=== PATIENT | female | born 1935 | race Two or more races ===

== ENCOUNTER 2017-09-10 03:30 | Inpatient (IN) | payer MEDICARE, OTHER ==
[~2017-09-10] VITALS: Ht 170.2 cm; Wt 94.8 kg
[~2017-09-10 03:30] MED LIST: AMLO5TAB2 PO; ATOR10TA PO; CLOP75TA15 PO; FURO20TA4 PO; GEMF600T3 PO; GLIM2TAB PO; INSU100V27 SQ; INSU100V7 SQ; LEVO75TA7 PO; LISI10TA5 PO; METF500T7 PO; METO50TA16 PO
--- NOTE | 2017-09-10 03:35 | NUR ---
82 YO FEMALE BB RA FROM HOME. PATIENT IS ALERT AND ORIENTED X 3, C/O SOB. PATIENT SPO2 IS 85 % ON ROOM AIR, PLACED PATIENT ON 4 LPM NC. PATIENT PLACED ON BICYCLE REPAIRER, SKIN WARM AND DRY, RESP EVEN AND UNLABORED. AWAITING ORDERS FROM PROVIDER, WILL CONTINUE TO MONITOR
[2017-09-10] MEDS ORDERED: ONDANSETRON HCL/PF 4 MG/2 ML VIAL ONE (03:45)
[2017-09-10] MEDS ORDERED: IV NS 0.9% 1,000 ML BAG IV ONE (04:00)
[2017-09-10] MEDS ORDERED: ONDANSETRON HCL/PF 4 MG/2 ML VIAL IVP ONE (04:00)
--- NOTE | 2017-09-10 04:02 | NUR ---
22G RIGHT HAND IV STARTED, MEDICATED PT ORDERED
[2017-09-10] MEDS ORDERED: DABI150C PO (04:09)
[2017-09-10] MEDS ORDERED: OMEG1CAP55 PO (04:09)
[2017-09-10] MEDS ORDERED: ZOLP10TA2 PO (04:09)
[2017-09-10] MEDS ORDERED: MULT1TAB73 PO (04:09)
[2017-09-10] MEDS ORDERED: EMPA25TA PO (04:09)
[2017-09-10] MEDS ORDERED: PANT40TA2 PO (04:09)
[2017-09-10] MEDS ORDERED: ASPI-1169 PO (04:09)
[2017-09-10] MEDS ORDERED: PIRF267C PO (04:09)
--- NOTE | 2017-09-10 04:25 | NUR ---
LINOLEUM LAYER HELPER AT [facility] SIDE FOR BLOOD DRAW
[2017-09-10 04:37] LABS: BASOPHILS % (AUTO) 0.2 % (0.0-2.0); EOSINOPHILS # (AUTO) 0.1 /CMM (0.0-0.7); EOSINOPHILS % (AUTO) 1.3 % (0.0-6.0); HEMATOCRIT 36 % (33-45); HEMOGLOBIN 11.9 g/dL (11.5-14.8); LYMPHOCYTES # (AUTO) 1.5 /CMM (0.8-4.8); LYMPHOCYTES % (AUTO) 14.6 % (20.0-44.0); MEAN CORPUSCULAR HEMOGLOBIN 28 PG (26.0-33.0); MEAN CORPUSCULAR HGB CONC 33 g/dl (31.0-36.0); MEAN CORPUSCULAR VOLUME 87 fL (82-100); MONOCYTES # (AUTO) 0.4 /CMM (0.1-1.30); MONOCYTES % (AUTO) 3.9 % (2.0-12.0); NEUTROPHILS # (AUTO) 8.4 /CMM (1.8-8.9); PLATELET COUNT (AUTO) 277 /CMM (150-450); RDW COEFFICIENT OF VARIATION 16.3 (11.5-15.0); RED BLOOD CELL COUNT(AUTO) 4.18 MIL/uL (4.0-5.2); WHITE BLOOD COUNT (AUTO) 10.6 K/uL (4.3-11.0)
[2017-09-10 04:56] LABS: ALANINE AMINOTRANSFERASE 22 U/L (12-78); ALBUMIN 3.2 g/dL (3.4-5.0); ALKALINE PHOSPHATASE 88 U/L (46-116); ASPARTATE AMINOTRANSFERASE 20 U/L (15-37); BILIRUBIN,DIRECT 0.1 mg/dL (0.0-0.2); BILIRUBIN,TOTAL 0.2 mg/dL (0.2-1.0); CALCIUM, SERUM 9.2 mg/dL (8.5-10.1); CARBON DIOXIDE 29 mmol/L (21-32); CHLORIDE 102 mmol/L (98-107); CREATININE 0.8 mg/dL (0.6-1.3); GLUCOSE 205 mg/dL (74-106); POTASSIUM 4.2 mmol/L (3.5-5.1); SODIUM SERUM 139 mmol/L (136-145); TOTAL PROTEIN, SERUM 7.9 g/dL (6.4-8.2); UREA NITROGEN, BLOOD 25 mg/dL (7-18)
[2017-09-10 04:58] LABS: TROPONIN I 0.053 ng/mL (0.00-0.056)
[2017-09-10] MEDS ORDERED: ALBUTEROL FS 2.5 MG/3 ML VIAL.NEB NEB ONE (05:30)
[2017-09-10] MEDS ORDERED: ALBUTEROL FS 2.5 MG/3 ML VIAL.NEB ONE (05:38)
[2017-09-10 05:44] LABS: APPEARANCE,URINE CLEAR (CLEAR); BILIRUBIN,URINE NEGATIVE (NEGATIVE); BLOOD, URINE NEGATIVE Ery/uL (NEGATIVE); COLOR,URINE YELLOW (YELLOW); KETONES,URINE NEGATIVE (NEGATIVE); LEUKOCYTE ESTERASE ,URINE NEGATIVE (NEGATIVE); NITRITE, URINE NEGATIVE (NEGATIVE); PROTEIN,URINE 3+ mg/dl (NEGATIVE); UGLUCOSE 2+ mg/dL (NEGATIVE); UROBILINOGEN,URINE 0.2 EU/dL (0.2)
[2017-09-10 06:09] LABS: BACTERIA,URINE Rare /HPF (None Seen); SQUAMOUS EPITHELIAL CELL,UR Few /HPF (None Seen)
[2017-09-10] MEDS ORDERED: methylPREDNISolone SOD SUCC 125 MG/2ML VIAL IV ONE (06:30)
[2017-09-10] MEDS ORDERED: MECLIZINE HCL 12.5 MG TABLET PO ONE (06:30)
--- NOTE | 2017-09-10 06:57 | NUR ---
REPORT WAS GIVEN TO ISRAEL BELTRE FOR [facility]
[2017-09-10] MEDS ORDERED: methylPREDNISolone SOD SUCC 125 MG/2ML VIAL ONE (07:01)
[2017-09-10] MEDS ORDERED: MECLIZINE HCL 25 MG TABLET ONE (07:01)
--- NOTE | 2017-09-10 08:00 | NUR ---
BRANCH ACCOUNT MANAGER NOTES RECEIVED PT FROM E.R. STAFF, PT IS AWAKE, ALERT AND ORIENTED, NO COMPLAINT OF PAIN, UNABLE TO AMBULATE, FEELING DIZZY, ASSISTED TO BED, MADE COMFORTABLE, RESPIRATIONS NORMAL AND NOT LABORED, ON O2 ORDERED, ROOM SET UP ORIENTATION PROVIDED TO PT, VERBALIZED UNDERSTANDING, ADMITTING ORDERS NOTED AND CARRIED OUT.
[2017-09-10] MEDS ORDERED: IPRATROPIUM NEB FS 0.5 MG/2.5 ML AMPUL.NEB IH PRN (08:30)
[2017-09-10] MEDS ORDERED: ALBUTEROL FS 2.5 MG/0.5 ML VIAL.NEB NEB PRN (08:30)
[2017-09-10] MEDS ORDERED: ACETAMINOPHEN 650 MG/20.3 ML UDC PO PRN (08:30)
[2017-09-10] MEDS: predniSONE 20 MG TABLET PO SCH ×2 (09:06→16:51)
[2017-09-10] MEDS: MECLIZINE HCL 12.5 MG TABLET PO SCH ×3 (09:06→16:49)
[2017-09-10] MEDS: PANTOPRAZOLE 40 MG TABLET.DR PO SCH (09:06)
[2017-09-10] MEDS ORDERED: DEXTROSE 50%-WATER 50 ML DISP.SYRIN IV PRN (09:30)
[2017-09-10] MEDS ORDERED: ONDANSETRON HCL/PF 4 MG/2 ML VIAL IVP PRN (09:30)
--- NOTE | 2017-09-10 10:32 | NUR ---
RN MS NOTES RECEIVED ORDER FROMDR. FUCHS TO CONTINUE ALL HOME MEDICATIONS.
[2017-09-10] MEDS ORDERED: PANTOPRAZOLE 40 MG TABLET.DR PO SCH (11:04)
[2017-09-10] MEDS: MULTIVITAMINS,THERAGRAN 1 UDTAB TABLET PO SCH (11:05)
[2017-09-10 12:00] VITALS: BP 170/74
[2017-09-10] MEDS ORDERED: DABIGATRAN ETEXILATE MESYLATE 150 MG CAPSULE PO SCH ×2 (12:00→13:14)
[2017-09-10] MEDS: INSULIN REGULAR, HUMAN 100 UNIT/ML 3 ML VIAL SQ PRN ×2 (12:30→17:14)
[2017-09-10] MEDS: FUROSEMIDE 20 MG TABLET PO SCH (12:31)
[2017-09-10] MEDS: AMLODIPINE BESYLATE 5 MG TABLET PO SCH (12:31)
[2017-09-10] MEDS: BLOOD SUGAR DIAGNOSTIC 1 EACH STRIP VI SCH ×3 (12:32→22:11)
[2017-09-10] MEDS: LISINOPRIL (10MG) 10 MG TABLET PO SCH (12:32)
[2017-09-10] MEDS: ASPIRIN 81 MG TAB.CHEW PO SCH (12:32)
[2017-09-10] MEDS ORDERED: prednisoLONE ACET 1% OPHT DROP 5 ML BOTTLE LEFTEYE SCH (13:00)
[2017-09-10] MEDS: ESBRIET 267 MG PO SCH ×2 (13:12→16:51)
[2017-09-10] MEDS: IPRATROPIUM NEB FS 0.5 MG/2.5 ML AMPUL.NEB IH SCH ×2 (13:30→19:50)
[2017-09-10] MEDS: ALBUTEROL FS 2.5 MG/0.5 ML VIAL.NEB NEB SCH ×2 (13:30→19:50)
[2017-09-10] MEDS: JARDIANCE PO SCH (14:00)
[2017-09-10] MEDS ORDERED: PRED5DRO16 LEFTEYE (14:13)
[2017-09-10 16:00] VITALS: BP 180/76
[2017-09-10] MEDS: IV NS 0.9% 1,000 ML IV PRN (16:48)
[2017-09-10] MEDS: METOPROLOL TARTRATE 25 MG TABLET PO SCH (16:50)
[2017-09-10] MEDS: METFORMIN XR 500 MG TAB.SR.24H PO SCH (16:50)
[2017-09-10] MEDS: LOVAZA PO SCH (16:50)
[2017-09-10] MEDS: DABIGATRAN ETEXILATE MESYLATE 150 MG CAPSULE PO SCH (16:51)
[2017-09-10 17:30] VITALS: BP 150/65
--- NOTE | 2017-09-10 18:30 | NUR ---
FINISH FILER NOTES PT IN BED, AWAKE, ALERT AND ORIENTED, NO COMPLAINT OF PAIN, NO SOB, NO COMPLAINT OF N/V, HOME MEDS CONTINUED PER DR. FUCHS'S ORDERS, NOTED WITH ELEVATED BP, BP MEDS GIVEN ORDERED, ENDORSED TO PM NURSE TO CONTINUE TO MONITOR, TOLERATING CURRENT DIET WELL, INSULIN GIVEN PER SLIDING SCALE ORDERED, ALL NEEDS ATTENDED.
[2017-09-10] MEDS: PREDNISOLONE ACETATE 1% LEFTEYE SCH ×2 (19:10→22:02)
--- NOTE | 2017-09-10 19:30 | NUR ---
TELE/RN RECEIVE PATIENT AWAKE, ALERT, ORIENTED, COMFORTABLE, NO C/O PAIN, NO DIZZINESS AT THIS TIME, NO DISTRESS NOTED, FALL PRECAUTION, ENCOURAGED TO USE CALL LIGHT L FOR ANY HELP TO PREVENT FALL, VERBALIZED UNDERSTANDING, CALL LIGHT IN REACH. WILL MONITOR.
[2017-09-10 20:00] VITALS: BP 133/51
--- NOTE | 2017-09-10 20:42 | NUR ---
Met with patient, she is alert and pleasant. She lives locally with her daughter Priscila in a 1 story home. Prior to admit- she was ambulating with a walker inside house and cane outside household. She was semi-independent with adl's. Has adequate DME: Home O2, walker, cane, wheelchair, commode and grab bars. She had previous homehealth and outpt PT but cannot recall the name and contact info of the company. Patient want to return home, her daughter will provide ride once discharge. Addendum: 09/10/17 at 2042 by SUSANA WYNN RN Amended: Links added.
[2017-09-10] MEDS ORDERED: ESBRIET PO ONE (21:00)
[2017-09-10] MEDS: INSULIN GLARGINE, 100 UNIT/ML CARTRIDGE SQ SCH (21:57)
[2017-09-10] MEDS: *INSULIN REGULAR(HUMULIN R)HUM 100 UNIT/ML VIAL SQ PRN (21:58)
[2017-09-10] MEDS: ZOLPIDEM TARTRATE 5 MG TABLET PO PRN (23:09)
[2017-09-11] VITALS: BP 145/72
--- NOTE | 2017-09-11 01:13 | NUR ---
TELE/RN PATIENT IS SLEEPING AT THIS TIME, AROUSABLE, APPEAR COMFORTABLE, NO SIGNS OF DISTRESS NOTED, CALL LIGHT IN REACH. WILL CONTINUE TO MONITOR.
--- NOTE | 2017-09-11 03:59 | NUR ---
TELE/RN IV NOT PATENT ANYMORE, REMOVED, AND INSERTED NEW IV AT LEFT HAND.
[2017-09-11 04:00] VITALS: BP 158/61
[2017-09-11] MEDS: INSULIN REGULAR, HUMAN 100 UNIT/ML 3 ML VIAL SQ PRN ×3 (06:42→17:29)
--- NOTE | 2017-09-11 06:49 | NUR ---
TELE/RN PATIENT IS AWAKE, COMFORTABLE, NO DISTRESS NOTED, ALL NEEDS ATTENDED AT THIS TIME. WILL CONTINUE TO MONITOR.
[2017-09-11 07:02] LABS: CARBON DIOXIDE 29 mmol/L (21-32); CHLORIDE 102 mmol/L (98-107); CREATININE 0.8 mg/dL (0.6-1.3); GLUCOSE 294 mg/dL (74-106); POTASSIUM 4.5 mmol/L (3.5-5.1); SODIUM SERUM 141 mmol/L (136-145); UREA NITROGEN, BLOOD 26 mg/dL (7-18)
[2017-09-11 07:03] LABS: HEMATOCRIT 34 % (33-45); HEMOGLOBIN 11.2 g/dL (11.5-14.8); LYMPHOCYTES # (AUTO) 1.3 /CMM (0.8-4.8); LYMPHOCYTES % (AUTO) 11.1 % (20.0-44.0); MEAN CORPUSCULAR HEMOGLOBIN 29 PG (26.0-33.0); MEAN CORPUSCULAR HGB CONC 33 g/dl (31.0-36.0); MEAN CORPUSCULAR VOLUME 86 fL (82-100); MONOCYTES # (AUTO) 0.5 /CMM (0.1-1.30); MONOCYTES % (AUTO) 4.4 % (2.0-12.0); NEUTROPHILS % (AUTO) 84.5 % (43.0-81.0); PLATELET COUNT (AUTO) 269 /CMM (150-450); RDW COEFFICIENT OF VARIATION 15.8 (11.5-15.0); RED BLOOD CELL COUNT(AUTO) 3.93 MIL/uL (4.0-5.2); WHITE BLOOD COUNT (AUTO) 11.9 K/uL (4.3-11.0)
[2017-09-11] MEDS: BLOOD SUGAR DIAGNOSTIC 1 EACH STRIP VI SCH ×4 (07:30→21:46)
[2017-09-11] MEDS: IPRATROPIUM NEB FS 0.5 MG/2.5 ML AMPUL.NEB IH SCH ×3 (07:47→20:11)
[2017-09-11] MEDS: ALBUTEROL FS 2.5 MG/0.5 ML VIAL.NEB NEB SCH ×3 (07:47→20:11)
[2017-09-11 08:00] VITALS: BP 153/72
--- NOTE | 2017-09-11 08:00 | NUR ---
MS RN RECEIVED ON BED,AWAKE,ALERT,ORIENTED X3,NOT IN ANY FORM OF DISTRESS,RESPIRATIONS EVEN AND UNLABORED,NO SOB NOTED, LUNGS ARE DIMINISH,ABDOMEN SOFT,POSITIVE BOWEL SOUNDS, DENIES PAIN AT THIS TIME.WILL MONITOR PATIENT'S CONDITION.
--- NOTE | 2017-09-11 09:00 | NUR ---
MS BELTRE BREAKFAST SERVED,DUE MEDS GIVEN,TOLERATED WELL.
[2017-09-11] MEDS: ATORVASTATIN 40 MG TABLET PO SCH (09:21)
[2017-09-11] MEDS: METFORMIN XR 500 MG TAB.SR.24H PO SCH ×2 (09:21→17:20)
[2017-09-11] MEDS: MULTIVITAMINS,THERAGRAN 1 UDTAB TABLET PO SCH (09:21)
[2017-09-11] MEDS: predniSONE 20 MG TABLET PO SCH ×2 (09:21→17:20)
[2017-09-11] MEDS: ASPIRIN 81 MG TAB.CHEW PO SCH (09:22)
[2017-09-11] MEDS: LOVAZA PO SCH (09:22)
[2017-09-11] MEDS: MECLIZINE HCL 12.5 MG TABLET PO SCH ×3 (09:22→21:46)
[2017-09-11] MEDS: FUROSEMIDE 20 MG TABLET PO SCH (09:22)
[2017-09-11] MEDS: PREDNISOLONE ACETATE 1% LEFTEYE SCH ×4 (09:22→21:43)
[2017-09-11] MEDS: ESBRIET 267 MG PO SCH ×3 (09:22→17:20)
[2017-09-11] MEDS: JARDIANCE PO SCH (09:23)
[2017-09-11] MEDS: DABIGATRAN ETEXILATE MESYLATE 150 MG CAPSULE PO SCH ×2 (09:23→17:20)
[2017-09-11] MEDS: METOPROLOL TARTRATE 25 MG TABLET PO SCH ×2 (09:24→17:25)
[2017-09-11] MEDS: AMLODIPINE BESYLATE 5 MG TABLET PO SCH (09:25)
[2017-09-11] MEDS: LISINOPRIL (10MG) 10 MG TABLET PO SCH (09:25)
[2017-09-11] MEDS: PANTOPRAZOLE 40 MG TABLET.DR PO SCH (09:27)
[2017-09-11] MEDS: LEVOTHYROXINE SODIUM 75 MCG TABLET PO SCH (09:27)
--- NOTE | 2017-09-11 09:30 | NUR ---
MS RN WAS SEEN BY DR. FUCHS , WAS NOTIFIED OF THE LACTIC ACID THAT IS ELEVATED, NO ORDER AT THIS TIME.
[2017-09-11] MEDS: INSULIN GLARGINE, 100 UNIT/ML CARTRIDGE SQ SCH ×2 (10:12→21:44)
--- NOTE | 2017-09-11 12:00 | NUR ---
MS RN PAGE DR. FUCHS, MADE AWARE THAT LACTIC ACID WENT UP TO 3.9 AND PATIENT IS COMPLAINING OF BURNING URINATION.AWAITING FOR HIM TO ORDER.
[2017-09-11] MEDS ORDERED: ESBRIET 267 MG PO SCH (13:00)
--- NOTE | 2017-09-11 14:00 | NUR ---
MS PATT FUCHS CALLED BACK W/ ORDER TO SEND URINE FOR UA AND SENSITIVITY AND BLOOD CULTURE.CARRIED OUT.
[2017-09-11 16:00] VITALS: BP 146/62
[2017-09-11] MEDS ORDERED: PIPERACILLIN /TAZOBACTAM 3.375 G in IV D5W 100 ML IV SCH (17:30)
[2017-09-11] MEDS: PIPERACILLIN /TAZOBACTAM 3.375 G in IV D5W 50 ML IV SCH (18:48)
[2017-09-11] MEDS: IV NS 0.9% 1,000 ML IV PRN (18:48)
--- NOTE | 2017-09-11 19:30 | NUR ---
MS/RN RECEIVE PATIENT AWAKE, ALERT, ORIENTED, COMFORTABLE, NO C/O PAIN, NO DISTRESS NOTED, CALL LIGHT IN REACH. WILL MONITOR.
[2017-09-11 20:00] VITALS: BP 147/67
[2017-09-11] MEDS: *INSULIN REGULAR(HUMULIN R)HUM 100 UNIT/ML VIAL SQ PRN (21:45)
[2017-09-12] MEDS: PIPERACILLIN /TAZOBACTAM 3.375 G in IV D5W 50 ML IV SCH ×5 (00:25→23:38)
[2017-09-12] MEDS: ZOLPIDEM TARTRATE 5 MG TABLET PO PRN ×2 (00:32→21:11)
[2017-09-12] MEDS: MECLIZINE HCL 12.5 MG TABLET PO SCH ×3 (05:19→21:11)
[2017-09-12 06:24] LABS: CALCIUM, SERUM 9.6 mg/dL (8.5-10.1); CARBON DIOXIDE 32 mmol/L (21-32); CHLORIDE 103 mmol/L (98-107); CREATININE 0.8 mg/dL (0.6-1.3); GLUCOSE 150 mg/dL (74-106); MAGNESIUM 2.2 mg/dL (1.8-2.4); POTASSIUM 4.1 mmol/L (3.5-5.1); SODIUM SERUM 142 mmol/L (136-145); UREA NITROGEN, BLOOD 34 mg/dL (7-18)
[2017-09-12 06:34] LABS: BASOPHILS % (AUTO) 0.3 % (0.0-2.0); EOSINOPHILS % (AUTO) 0.1 % (0.0-6.0); HEMATOCRIT 34 % (33-45); HEMOGLOBIN 11.3 g/dL (11.5-14.8); LYMPHOCYTES # (AUTO) 1.5 /CMM (0.8-4.8); LYMPHOCYTES % (AUTO) 12.3 % (20.0-44.0); MEAN CORPUSCULAR HEMOGLOBIN 29 PG (26.0-33.0); MEAN CORPUSCULAR HGB CONC 34 g/dl (31.0-36.0); MEAN CORPUSCULAR VOLUME 86 fL (82-100); MONOCYTES # (AUTO) 0.4 /CMM (0.1-1.30); NEUTROPHILS # (AUTO) 10.4 /CMM (1.8-8.9); NEUTROPHILS % (AUTO) 84.3 % (43.0-81.0); PLATELET COUNT (AUTO) 294 /CMM (150-450); RDW COEFFICIENT OF VARIATION 16.6 (11.5-15.0); RED BLOOD CELL COUNT(AUTO) 3.92 MIL/uL (4.0-5.2); WHITE BLOOD COUNT (AUTO) 12.3 K/uL (4.3-11.0)
[2017-09-12] MEDS: INSULIN REGULAR, HUMAN 100 UNIT/ML 3 ML VIAL SQ PRN ×3 (06:54→18:08)
[2017-09-12] MEDS: BLOOD SUGAR DIAGNOSTIC 1 EACH STRIP VI SCH ×4 (06:57→21:15)
--- NOTE | 2017-09-12 07:00 | NUR ---
MS/RN PATIENT AWAKE, COMFORTABLE, NO CHANGE IN CONDITION. ALL NEEDS ATTENDED AT THIS TIME. WILL CONTINUE TO MONITOR.
[2017-09-12] MEDS: ALBUTEROL FS 2.5 MG/0.5 ML VIAL.NEB NEB SCH ×3 (07:17→20:23)
[2017-09-12] MEDS: IPRATROPIUM NEB FS 0.5 MG/2.5 ML AMPUL.NEB IH SCH ×3 (07:17→20:23)
[2017-09-12 08:00] VITALS: BP 132/76
--- NOTE | 2017-09-12 08:00 | NUR ---
ms rn received on bed, alert,oriented x4,not in any form of distress, respirations even and unlabored,no sob noted, lungs are clear,abdomen soft,positive bowel sounds,denies pain at this time, will monitor patients condition.
--- NOTE | 2017-09-12 09:00 | NUR ---
ms cross breakfast served,due meds given,tolerated well.
[2017-09-12] MEDS: ATORVASTATIN 40 MG TABLET PO SCH (09:18)
[2017-09-12] MEDS: ASPIRIN 81 MG TAB.CHEW PO SCH (09:18)
[2017-09-12] MEDS: ESBRIET 267 MG PO SCH ×3 (09:18→17:58)
[2017-09-12] MEDS: predniSONE 20 MG TABLET PO SCH ×2 (09:19→17:57)
[2017-09-12] MEDS: PANTOPRAZOLE 40 MG TABLET.DR PO SCH (09:19)
[2017-09-12] MEDS: LEVOTHYROXINE SODIUM 75 MCG TABLET PO SCH (09:19)
[2017-09-12] MEDS: JARDIANCE PO SCH (09:20)
[2017-09-12] MEDS: METFORMIN XR 500 MG TAB.SR.24H PO SCH ×2 (09:20→17:57)
[2017-09-12] MEDS: FUROSEMIDE 20 MG TABLET PO SCH (09:20)
[2017-09-12] MEDS: LOVAZA PO SCH (09:21)
[2017-09-12] MEDS: AMLODIPINE BESYLATE 5 MG TABLET PO SCH (09:22)
[2017-09-12] MEDS: METOPROLOL TARTRATE 25 MG TABLET PO SCH ×2 (09:22→17:00)
[2017-09-12] MEDS: LISINOPRIL (10MG) 10 MG TABLET PO SCH (09:23)
[2017-09-12] MEDS: MULTIVITAMINS,THERAGRAN 1 UDTAB TABLET PO SCH (09:27)
[2017-09-12] MEDS: PREDNISOLONE ACETATE 1% LEFTEYE SCH ×4 (09:29→21:13)
[2017-09-12] MEDS: INSULIN GLARGINE, 100 UNIT/ML CARTRIDGE SQ SCH ×2 (09:42→21:15)
--- NOTE | 2017-09-12 10:00 | NUR ---
MS RN WAS SEEN BY DR. FUCHS W/ ORDERS MADE AND CARRIED OUT.
[2017-09-12] MEDS: DABIGATRAN ETEXILATE MESYLATE 150 MG CAPSULE PO SCH ×2 (12:45→17:57)
--- NOTE | 2017-09-12 15:30 | NUR ---
MS RN ON BED,NO DISTRESS NOTED.
[2017-09-12 16:00] VITALS: BP 111/51
--- NOTE | 2017-09-12 18:00 | NUR ---
MS BELTRE BS - 292 - 9 UNITS OF REGULAR INSULIN GIVEN SQ.
--- NOTE | 2017-09-12 19:11 | NUR ---
MS RN ON BED, NO DISTRESS, WILL ENDORSE TO HUMAN RESOURCE ASSISTANT FOR CONTINUITY OF CARE.
--- NOTE | 2017-09-12 19:30 | NUR ---
RN NOTES RECEIVED PATIENT IN BED AWAKE, AO X 3, ABLE TO MAKE NEEDS KNOWN. NO ACUTE DISTRESS NOTED. DENIES ANY PAIN AT THIS TIME. IV SITE PATENT, INTACT; FLUSHED. NO SYMPTOMS OF HYPER/HYPOGLYCEMIA. SAFETY REMINDERS GIVEN. ON LOW BED WITH BILATERAL UPPER SIDE RAILS UP. CALL RHODES WITHIN EASY REACH. WILL CONTINUE TO MONITOR.
[2017-09-12 20:00] VITALS: BP 135/63
[2017-09-12] MEDS ORDERED: MAGNESIUM HYDROXIDE 30 ML UDC PO PRN (21:00)
[2017-09-12] MEDS: *INSULIN REGULAR(HUMULIN R)HUM 100 UNIT/ML VIAL SQ PRN (21:32)
[2017-09-13] MEDS: PIPERACILLIN /TAZOBACTAM 3.375 G in IV D5W 50 ML IV SCH ×4 (05:38→23:22)
[2017-09-13] MEDS: MECLIZINE HCL 12.5 MG TABLET PO SCH ×3 (05:38→21:06)
--- NOTE | 2017-09-13 06:25 | NUR ---
RN NOTES PATIENT ASLEEP, EASILY AROUSABLE. RESPIRATIONS EVEN. NO SIGNS OF PAIN NOTED. NO SYMPTOMS OF HYPER/HYPOGLYCEMIA. NEEDS ATTENDED. DUE MEDS GIVEN WITH NO ASE NOTED. KEPT CLEAN, DRY AND COMFORTABLE. SAFETY PRECAUTIONS AND COMFORT MEASURES IN PLACE. WILL GIVE REPORT TO DAY SHIFT FOR CONTINUITY OF CARE.
[2017-09-13] MEDS: INSULIN REGULAR, HUMAN 100 UNIT/ML 3 ML VIAL SQ PRN ×3 (06:32→17:29)
[2017-09-13] MEDS: LEVOTHYROXINE SODIUM 75 MCG TABLET PO SCH (06:34)
[2017-09-13] MEDS: PANTOPRAZOLE 40 MG TABLET.DR PO SCH (06:34)
[2017-09-13] MEDS: BLOOD SUGAR DIAGNOSTIC 1 EACH STRIP VI SCH ×4 (06:35→21:07)
[2017-09-13 07:09] LABS: BASOPHILS % (AUTO) 0.3 % (0.0-2.0); EOSINOPHILS # (AUTO) 0.1 /CMM (0.0-0.7); EOSINOPHILS % (AUTO) 0.5 % (0.0-6.0); HEMATOCRIT 38 % (33-45); HEMOGLOBIN 12.6 g/dL (11.5-14.8); LYMPHOCYTES # (AUTO) 1.9 /CMM (0.8-4.8); LYMPHOCYTES % (AUTO) 16.3 % (20.0-44.0); MEAN CORPUSCULAR HEMOGLOBIN 29 PG (26.0-33.0); MEAN CORPUSCULAR HGB CONC 33 g/dl (31.0-36.0); MEAN CORPUSCULAR VOLUME 87 fL (82-100); MONOCYTES # (AUTO) 0.5 /CMM (0.1-1.30); MONOCYTES % (AUTO) 4.4 % (2.0-12.0); NEUTROPHILS # (AUTO) 8.9 /CMM (1.8-8.9); NEUTROPHILS % (AUTO) 78.5 % (43.0-81.0); PLATELET COUNT (AUTO) 308 /CMM (150-450); RDW COEFFICIENT OF VARIATION 16.1 (11.5-15.0); RED BLOOD CELL COUNT(AUTO) 4.39 MIL/uL (4.0-5.2); WHITE BLOOD COUNT (AUTO) 11.4 K/uL (4.3-11.0)
[2017-09-13 07:19] LABS: CALCIUM, SERUM 9.1 mg/dL (8.5-10.1); CARBON DIOXIDE 33 mmol/L (21-32); CHLORIDE 104 mmol/L (98-107); CREATININE 0.9 mg/dL (0.6-1.3); GLUCOSE 160 mg/dL (74-106); SODIUM SERUM 145 mmol/L (136-145); UREA NITROGEN, BLOOD 38 mg/dL (7-18)
[2017-09-13] MEDS: ALBUTEROL FS 2.5 MG/0.5 ML VIAL.NEB NEB SCH ×3 (07:26→20:43)
[2017-09-13] MEDS: IPRATROPIUM NEB FS 0.5 MG/2.5 ML AMPUL.NEB IH SCH ×3 (07:26→20:43)
[2017-09-13 08:00] VITALS: BP 137/67
--- NOTE | 2017-09-13 08:00 | NUR ---
MS RN NOTES PATIENT IN BED RESTING NO SOB OR ACUTE DISTRESS NOTED. PERIPHERAL IV INTACT PATENT. PATIENT ALERT, ORIENTED X4. BED IN LOW LOCKED POSITION. CALL LIGHT WITHIN REACH. WILL CONTINUE TO MONITOR.
[2017-09-13] MEDS: FUROSEMIDE 20 MG TABLET PO SCH (08:25)
[2017-09-13] MEDS: ASPIRIN 81 MG TAB.CHEW PO SCH (08:25)
[2017-09-13] MEDS: METFORMIN XR 500 MG TAB.SR.24H PO SCH ×2 (08:25→17:26)
[2017-09-13] MEDS: ATORVASTATIN 40 MG TABLET PO SCH (08:25)
[2017-09-13] MEDS: DOCUSATE SODIUM 100 MG CAPSULE PO SCH ×2 (08:25→17:26)
[2017-09-13] MEDS: METOPROLOL TARTRATE 25 MG TABLET PO SCH ×2 (08:26→17:27)
[2017-09-13] MEDS: MULTIVITAMINS,THERAGRAN 1 UDTAB TABLET PO SCH (08:26)
[2017-09-13] MEDS: predniSONE 20 MG TABLET PO SCH ×2 (08:26→17:26)
[2017-09-13] MEDS: AMLODIPINE BESYLATE 5 MG TABLET PO SCH (08:26)
[2017-09-13] MEDS: LISINOPRIL (10MG) 10 MG TABLET PO SCH (08:27)
[2017-09-13] MEDS: JARDIANCE PO SCH (08:27)
[2017-09-13] MEDS: ESBRIET 267 MG PO SCH ×3 (08:28→17:28)
[2017-09-13] MEDS: DABIGATRAN ETEXILATE MESYLATE 150 MG CAPSULE PO SCH ×2 (08:28→17:28)
[2017-09-13] MEDS: LOVAZA PO SCH (08:29)
[2017-09-13] MEDS: PREDNISOLONE ACETATE 1% LEFTEYE SCH ×4 (08:29→21:06)
[2017-09-13] MEDS: INSULIN GLARGINE, 100 UNIT/ML CARTRIDGE SQ SCH ×2 (09:34→21:07)
[2017-09-13 16:00] VITALS: BP 113/74
--- NOTE | 2017-09-13 19:00 | NUR ---
RN NOTES RECEIVE PT IN BED A/O X4, NO S/S OF DISTRESS, STABLE, SAFETY MEASURES IN PLACE, CALL LIGHT WITHIN REACH, WILL CONTINUE TO MONITOR.
--- NOTE | 2017-09-13 19:15 | NUR ---
MS RN NOTES PATIENT IN BED RESTING NO SOB OR ACUTE DISTRESS NOTED. ALL DUE MEDICATIONS ADMINISTERED. ALL NEEDS MET. PERIPHERAL IV INTACT PATENT. ENDORSED CARE TO PM SHIFT.
[2017-09-13 20:00] VITALS: BP 155/73
[2017-09-13] MEDS: ZOLPIDEM TARTRATE 5 MG TABLET PO PRN (21:09)
[2017-09-13] MEDS: *INSULIN REGULAR(HUMULIN R)HUM 100 UNIT/ML VIAL SQ PRN (21:13)
[2017-09-14] MEDS: PIPERACILLIN /TAZOBACTAM 3.375 G in IV D5W 50 ML IV SCH ×4 (05:04→23:37)
[2017-09-14] MEDS: MECLIZINE HCL 12.5 MG TABLET PO SCH ×3 (05:04→21:14)
[2017-09-14] MEDS: INSULIN REGULAR, HUMAN 100 UNIT/ML 3 ML VIAL SQ PRN ×3 (05:53→17:25)
--- NOTE | 2017-09-14 06:17 | NUR ---
MS RN CLOSING NOTES PT ASLEEP IN BED AND EASILY AWAKEN, HEAD OF BED ELEVATED AT ALL TIMES FOR BETTER LUNG EXPANSION AND GOOD CIRCULATION. ON 2LPM VIA NC 02 SAT AT 97% AFEBRILE. NOT IN RESPIRATORY DISTRESS, STABLE, NURSING CARE RENDERED. NEEDS ATTENDED AND ANTICIPATED. GOOD SKIN CARE PROVIDED. KEPT CLEAN AND DRY AND COMFORTABLE.NO C/O OF PAIN. ASSISTED REPOSITION EVERY 2 HOURS. ON LOW BED TO ENSURE SAFETY, CALL LIGHT WITHIN REACH, WILL ENDORSE TO THE NEXT SHIFT CONTINUE PLAN OF CARE.
[2017-09-14 07:14] LABS: BASOPHILS % (AUTO) 0.2 % (0.0-2.0); EOSINOPHILS % (AUTO) 0.1 % (0.0-6.0); HEMATOCRIT 38 % (33-45); HEMOGLOBIN 12.8 g/dL (11.5-14.8); LYMPHOCYTES # (AUTO) 2.6 /CMM (0.8-4.8); LYMPHOCYTES % (AUTO) 22.7 % (20.0-44.0); MEAN CORPUSCULAR HEMOGLOBIN 29 PG (26.0-33.0); MEAN CORPUSCULAR HGB CONC 34 g/dl (31.0-36.0); MEAN CORPUSCULAR VOLUME 86 fL (82-100); MONOCYTES # (AUTO) 0.6 /CMM (0.1-1.30); MONOCYTES % (AUTO) 5.4 % (2.0-12.0); NEUTROPHILS # (AUTO) 8.3 /CMM (1.8-8.9); NEUTROPHILS % (AUTO) 71.6 % (43.0-81.0); PLATELET COUNT (AUTO) 310 /CMM (150-450); RDW COEFFICIENT OF VARIATION 16.2 (11.5-15.0); RED BLOOD CELL COUNT(AUTO) 4.46 MIL/uL (4.0-5.2); WHITE BLOOD COUNT (AUTO) 11.6 K/uL (4.3-11.0)
--- NOTE | 2017-09-14 07:24 | NUR ---
MS RN OPENING NOTES PT RECEIVED IN BED ASLEEP, EASILY AWAKENS. APPEARS COMFORTABLE WITH NO SIGNS OF PAIN NOTED AT THIS TIME. ON 02 VIA N/C @ 2LPM, BREATHING EVEN AND UNLABORED. IV ACCESS ON RFA INTACT AND PATENT, FLUSHES EASILY. BED LOW AND IN LOCKED POSITION WITH SIDE-RAILS UP X2. CALL LIGHT WITHIN REACH. WILL CONTINUE TO MONITOR ACCORDINGLY.
[2017-09-14 07:25] LABS: CALCIUM, SERUM 8.9 mg/dL (8.5-10.1); CARBON DIOXIDE 30 mmol/L (21-32); CHLORIDE 104 mmol/L (98-107); CREATININE 0.9 mg/dL (0.6-1.3); GLUCOSE 152 mg/dL (74-106); SODIUM SERUM 143 mmol/L (136-145); UREA NITROGEN, BLOOD 34 mg/dL (7-18)
[2017-09-14] MEDS: BLOOD SUGAR DIAGNOSTIC 1 EACH STRIP VI SCH ×4 (07:56→21:15)
[2017-09-14 08:00] VITALS: BP 104/72
[2017-09-14] MEDS: METFORMIN XR 500 MG TAB.SR.24H PO SCH ×2 (08:03→17:21)
[2017-09-14] MEDS: LEVOTHYROXINE SODIUM 75 MCG TABLET PO SCH (08:03)
[2017-09-14] MEDS: DOCUSATE SODIUM 100 MG CAPSULE PO SCH ×2 (08:04→17:21)
[2017-09-14] MEDS: PANTOPRAZOLE 40 MG TABLET.DR PO SCH (08:04)
[2017-09-14] MEDS: ATORVASTATIN 40 MG TABLET PO SCH (08:04)
[2017-09-14] MEDS: predniSONE 20 MG TABLET PO SCH ×2 (08:05→17:21)
[2017-09-14] MEDS: MULTIVITAMINS,THERAGRAN 1 UDTAB TABLET PO SCH (08:05)
[2017-09-14] MEDS: FUROSEMIDE 20 MG TABLET PO SCH (08:05)
[2017-09-14] MEDS: ASPIRIN 81 MG TAB.CHEW PO SCH (08:05)
[2017-09-14] MEDS: PREDNISOLONE ACETATE 1% LEFTEYE SCH ×4 (08:07→21:15)
[2017-09-14] MEDS: METOPROLOL TARTRATE 25 MG TABLET PO SCH ×2 (08:08→17:22)
[2017-09-14] MEDS: LISINOPRIL (10MG) 10 MG TABLET PO SCH (08:09)
[2017-09-14] MEDS: AMLODIPINE BESYLATE 5 MG TABLET PO SCH (08:09)
[2017-09-14] MEDS: LOVAZA PO SCH (08:56)
[2017-09-14] MEDS: DABIGATRAN ETEXILATE MESYLATE 150 MG CAPSULE PO SCH ×2 (08:56→17:23)
[2017-09-14] MEDS: ESBRIET 267 MG PO SCH ×3 (08:56→17:22)
[2017-09-14] MEDS: JARDIANCE PO SCH (08:56)
[2017-09-14] MEDS: ALBUTEROL FS 2.5 MG/0.5 ML VIAL.NEB NEB SCH ×3 (09:02→20:00)
[2017-09-14] MEDS: IPRATROPIUM NEB FS 0.5 MG/2.5 ML AMPUL.NEB IH SCH ×3 (09:02→20:00)
[2017-09-14] MEDS: INSULIN GLARGINE, 100 UNIT/ML CARTRIDGE SQ SCH ×2 (09:05→21:20)
--- NOTE | 2017-09-14 09:25 | NUR ---
RN NOTES PT REFUSED ALL BP MEDS THIS MORNING STATING THAT BP OF 104/72 MMHG IS LOW. WILL CONTINUE TO MONITOR.
--- NOTE | 2017-09-14 14:40 | NUR ---
RT NOTE: AWAKE AND ALERT PATIENT REFUSED DEFERRED RESPIRATORY TREATMENT AT THIS TIME. STATES SHE IS DOING WELL AND WILL RESUME NEXT SCHEDULED TREATMENT. NO DISTRESS NOTED. UNLABORED EVEN RESPIRATIONS NOTED. WILL ENDORSE TO INCOMING SHIFT.
[2017-09-14 16:00] VITALS: BP 135/68
--- NOTE | 2017-09-14 18:50 | NUR ---
MS RN CLOSING NOTES PATIENT AWAKE AND RESTING AT MODERATE HIGH BACKREST IN BED. A/O X4. ABLE TO VERBALIZED NEEDS AND CONCERNS. ALL NEEDS AND CARE ATTENDED WELL. ON 02 VIA N/C @ 2LPM, TOLERATING WELL WITH NO ACUTE RESPIRATORY DISTRESS NOTED. IV ACCESS ON RFA INTACT AND PATENT, FLUSHES EASILY. HOB KEPT ELEVATED. BED LOW AND IN LOCKED POSITION WITH SIDE-RAILS UP X2. CALL LIGHT AND BEDSIDE TABLE WITHIN REACH. ALL DUE MEDS GIVEN [id number] WITHOUT ADVERSE REACTIONS NOTED. WILL ENDORSED TO LABOR STANDARDS DIRECTOR NURSE FOR [facility]..
--- NOTE | 2017-09-14 19:13 | NUR ---
RN NOTES RECEIVE PT IN BED A/O X3, NO S/S OF DISTRESS, STABLE, SAFETY MEASURES IN PLACE, CALL LIGHT WITHIN REACH, WILL CONTINUE TO MONITOR.
[2017-09-14 20:00] VITALS: BP 130/75
[2017-09-14] MEDS: ZOLPIDEM TARTRATE 5 MG TABLET PO PRN (21:14)
[2017-09-14] MEDS: *INSULIN REGULAR(HUMULIN R)HUM 100 UNIT/ML VIAL SQ PRN (21:21)
[2017-09-15] MEDS: MECLIZINE HCL 12.5 MG TABLET PO SCH ×2 (05:17→12:23)
[2017-09-15] MEDS: PIPERACILLIN /TAZOBACTAM 3.375 G in IV D5W 50 ML IV SCH ×3 (05:18→18:26)
[2017-09-15] MEDS: BLOOD SUGAR DIAGNOSTIC 1 EACH STRIP VI SCH ×3 (05:36→17:10)
[2017-09-15] MEDS: INSULIN REGULAR, HUMAN 100 UNIT/ML 3 ML VIAL SQ PRN ×3 (05:38→17:21)
--- NOTE | 2017-09-15 05:42 | NUR ---
PATIENT EATING AND DRINK 8OZ OF JUICE
--- NOTE | 2017-09-15 06:45 | NUR ---
MS RN CLOSING NOTES PT COMFORTABLY ASLEEP AND EASILY AWAKEN, HEAD OF BED ELEVATED AT ALL TIMES FOR BETTER LUNG EXPANSION AND GOOD CIRCULATION. ON 2LPM VIA NC 02 SAT AT 98% NOT IN RESPIRATORY DISTRESS, STABLE, KEPT CLEAN AND DRY AND COMFORTABLE. NURSING CARE RENDERED. NEEDS ATTENDED AND ANTICIPATED. GOOD SKIN CARE PROVIDED.ASSISTED REPOSITION EVERY 2 HOURS FOR SKIN MANAGEMENT. ON LOW BED TO ENSURE SAFETY, CALL LIGHT WITHIN REACH, WILL ENDORSE TO THE NEXT SHIFT CONTINUE PLAN OF CARE.
[2017-09-15] MEDS: IPRATROPIUM NEB FS 0.5 MG/2.5 ML AMPUL.NEB IH SCH ×3 (06:55→19:30)
[2017-09-15] MEDS: ALBUTEROL FS 2.5 MG/0.5 ML VIAL.NEB NEB SCH ×3 (06:55→19:30)
--- NOTE | 2017-09-15 06:58 | NUR ---
RT HHN TX GIVEN, CLEAR B/S, NO SOB, REMAINS ON 3L N/C SPO2 WAS 94%
--- NOTE | 2017-09-15 07:30 | NUR ---
MS RN OPENING NOTES PT RECEIVED IN BED, AWAKE ALERT AND VERBALLY RESPONSIVE, ABLE TO MAKE NEEDS KNOWN. APPEARS COMFORTABLE WITH NO SIGNS OF PAIN NOTED AT THIS TIME. ON 02 VIA N/C @ 2LPM, BREATHING EVEN AND UNLABORED. IV ACCESS ON RFA INTACT AND PATENT, NO REDNESS OR INFILTRATION NOTED. BED LOW AND IN LOCKED POSITION WITH SIDE-RAILS UP X2. CALL LIGHT WITHIN REACH. WILL CONTINUE TO MONITOR ACCORDINGLY.
[2017-09-15 08:00] VITALS: BP 122/72
[2017-09-15] MEDS: ESBRIET 267 MG PO SCH ×3 (08:32→17:13)
[2017-09-15] MEDS: JARDIANCE PO SCH (08:33)
[2017-09-15] MEDS: DABIGATRAN ETEXILATE MESYLATE 150 MG CAPSULE PO SCH ×2 (08:34→17:23)
[2017-09-15] MEDS: LOVAZA PO SCH (08:34)
[2017-09-15] MEDS: FUROSEMIDE 20 MG TABLET PO SCH (08:35)
[2017-09-15] MEDS: METFORMIN XR 500 MG TAB.SR.24H PO SCH ×2 (08:35→17:13)
[2017-09-15] MEDS: LEVOTHYROXINE SODIUM 75 MCG TABLET PO SCH (08:35)
[2017-09-15] MEDS: AMLODIPINE BESYLATE 5 MG TABLET PO SCH (08:35)
[2017-09-15] MEDS: MULTIVITAMINS,THERAGRAN 1 UDTAB TABLET PO SCH (08:35)
[2017-09-15] MEDS: PANTOPRAZOLE 40 MG TABLET.DR PO SCH (08:36)
[2017-09-15] MEDS: predniSONE 20 MG TABLET PO SCH ×2 (08:36→17:13)
[2017-09-15] MEDS: ATORVASTATIN 40 MG TABLET PO SCH (08:36)
[2017-09-15] MEDS: ASPIRIN 81 MG TAB.CHEW PO SCH (08:37)
[2017-09-15] MEDS: INSULIN GLARGINE, 100 UNIT/ML CARTRIDGE SQ SCH (08:43)
[2017-09-15] MEDS: PREDNISOLONE ACETATE 1% LEFTEYE SCH ×3 (08:45→17:14)
[2017-09-15] MEDS: DOCUSATE SODIUM 100 MG CAPSULE PO SCH ×2 (08:46→17:00)
[2017-09-15] MEDS: LISINOPRIL (10MG) 10 MG TABLET PO SCH (09:40)
[2017-09-15] MEDS: METOPROLOL TARTRATE 25 MG TABLET PO SCH ×2 (09:40→16:49)
[2017-09-15 16:00] VITALS: BP 104/53
[2017-09-15] MEDS ORDERED: MECL-102 PO (18:08)
--- NOTE | 2017-09-15 18:59 | NUR ---
MS RN CLOSING NOTES PT IN BED, AWAKE ALERT AND VERBALLY RESPONSIVE, ABLE TO MAKE NEEDS KNOWN. APPEARS COMFORTABLE WITH NO SIGNS OF PAIN NOTED AT THIS TIME. ON 02 VIA N/C @ 2LPM, BREATHING EVEN AND UNLABORED. IV ACCESS ON RFA INTACT AND PATENT, NO REDNESS OR INFILTRATION NOTED. BED LOW AND IN LOCKED POSITION WITH SIDE-RAILS UP X2. CALL LIGHT WITHIN REACH. WILL CONTINUE TO MONITOR ACCORDINGLY.PATIENT WITH DISCHARGE ORDERS PER PT, DAUGHTER WILL ARRIVE IN ABOUT 30 MINUTES. ALL DISCHARGE PAPERWORK PREPARED, WILL ENDORSE TO NEXT SHIFT FOR CONTINUITY OF DISCHARGE PROCESS AND CONTINUITY OF CARE
--- NOTE | 2017-09-15 19:30 | NUR ---
MS RN OPENING NOTES: PATIENT SITTING ON BED, AOX4, ON O2 AT 2 LPM VIA NC, BREATHING EVEN AND UNLABORED. APPEARS CALM AND IN NO DISTRESS. DAUGHTER AT BEDSIDE.PATIENT IS ABOUT TO BE DISCHARGED TO HOME WITH DAUGHTER. DISCHARGE INSTRUCTIONS GIVEN AND SIGNED BY PATIENT HERSELF. VS CHECKED, STABLE.
[2017-09-15 20:00] VITALS: BP 112/65
--- NOTE | 2017-09-15 20:00 | NUR ---
RN NOTES: PER PATIENT'S DAUGHTER REQUEST, CALL MADE TO GEMA GRAVES AT [facility] TO HAVE MECLIZINE PRESCRIPTION PROCESSED.
--- NOTE | 2017-09-15 20:17 | NUR ---
DISCHARGE NOTES: DISCHARGE INSTRUCTIONS GIVEN AND SIGNED, PATIENT'S BELONGINGS LIST CHECKED WITH DAUGHTER AND SIGNED, PIV OVER RFA TAKEN OFF. DISCHARGE CARE PROVIDED. PATIENT WAS BROUGHT TO LOBBY VIA WHEELCHAIR ACCOMPANIED BY DAUGHTER ON PORTABLE OXYGEN (PATIENT HAS HOME O2) IN STABLE CONDITION WITH ALL BELONGINGS.
== END 2017-09-15 20:16 | disposition home or self-care (01) | DRG 178 ==
LOC: ER 03:33 → TELE 07:38 → MED 09-11 08:31
PROVIDERS: ADMIT Legal Medicine; ATTEND Legal Medicine
DX: J69.0 Pneumonitis due to inhalation of food and vomit (principal); J96.10 Chronic respiratory failure, unspecified whether with hypoxia or hypercapnia; I27.20 Pulmonary hypertension, unspecified; I48.2 Chronic atrial fibrillation; E66.01 Morbid (severe) obesity due to excess calories; J84.10 Pulmonary fibrosis, unspecified; W06.XXXA Fall from bed, initial encounter; H81.10 Benign paroxysmal vertigo, unspecified ear; K21.9 Gastro-esophageal reflux disease without esophagitis; I10 Essential (primary) hypertension; I25.10 Atherosclerotic heart disease of native coronary artery without angina pectoris; Z99.81 Dependence on supplemental oxygen; Z86.73 Personal history of transient ischemic attack (TIA), and cerebral infarction without residual deficits; Z83.3 Family history of diabetes mellitus; Z79.82 Long term (current) use of aspirin; Z79.4 Long term (current) use of insulin; Z79.01 Long term (current) use of anticoagulants; Z79.899 Other long term (current) drug therapy; Z79.84 Long term (current) use of oral hypoglycemic drugs; E11.9 Type 2 diabetes mellitus without complications; E03.9 Hypothyroidism, unspecified; M19.90 Unspecified osteoarthritis, unspecified site; Z68.32 Body mass index [BMI] 32.0-32.9, adult; Z91.81 History of falling; Y92.009 Unspecified place in unspecified non-institutional (private) residence as the place of occurrence of the external cause
CPT/HCPCS: 36415; 70450-TC; 71045-TC; 80048-TC; 80076-TC; 81000-TC; 82962-TC; 83605-TC; 83735-TC; 84484-TC; 85025-TC; 87040-TC; 87081-TC; 94799-TC; 97110-TC; 97116-TC; 97530-TC; A4606; J1815; J2405; J2543; J2930; J7030; J7060; J8597; Z7610